=== PATIENT | female | born 1960 | race Caucasian/White ===

== ENCOUNTER 2021-02-13 07:11 | Outpatient (CLI) | payer BC ==
[~2021-02-13 07:11] MED LIST: REGADENOSON 0.4 MG/5 ML SYRINGE ONE
== END 2021-02-13 23:59 | disposition home or self-care (01) ==
LOC: CVU 07:11 → CFH 23:59
PROVIDERS: ATTEND Internal Medicine Cardiovascular Disease
DX: I08.3 Combined rheumatic disorders of mitral, aortic and tricuspid valves (principal); I21.19 ST elevation (STEMI) myocardial infarction involving other coronary artery of inferior wall; I25.5 Ischemic cardiomyopathy; I25.9 Chronic ischemic heart disease, unspecified; I11.0 Hypertensive heart disease with heart failure; I50.9 Heart failure, unspecified; R06.02 Shortness of breath
CPT/HCPCS: 78452; 93017; A9502; C8929; J2785; Q9957

== ENCOUNTER 2021-04-08 08:44 | Inpatient (IN) | payer BC ==
[~2021-04-08] VITALS: Ht 162.6 cm; Wt 89.2 kg
[2021-04-08] MEDS ORDERED: ATOR-2 PO (09:15)
[2021-04-08] MEDS ORDERED: FURO-93 PO (09:15)
[2021-04-08] MEDS ORDERED: SACU1TAB PO (09:15)
[2021-04-08] MEDS ORDERED: ALBU90AE2 INH (09:15)
[2021-04-08] MEDS ORDERED: POTA20TA89 PO (09:15)
[2021-04-08] MEDS ORDERED: CARV6.2512 PO (09:15)
[2021-04-08 09:18] VITALS: BP 105/72
[2021-04-08 09:33] LABS: BASOPHILS % (AUTO) 1 % (0-1); EOSINOPHILS % (AUTO) 3 % (1-7); LYMPHOCYTES % (AUTO) 24 % (22-44); MEAN CORPUSCULAR HEMOGLOBIN 28.4 pg (27.0-34.8); MEAN CORPUSCULAR HGB CONC 33.2 g/dL (32.4-35.8); MEAN PLATELET VOLUME 7.7 fL (7.4-10.4); MONOCYTES % (AUTO) 8 % (2-9); NEUTROPHILS % (AUTO) 64 % (42-75); PLATELET COUNT 275 x10^3/uL (130-400); RED BLOOD COUNT 6.01 x10^6/uL (3.82-5.3); RED CELL DISTRIBUTION WIDTH 14.9 % (9.6-15.2)
[2021-04-08 09:44] LABS: ANION GAP 9 mmol/L (5-15); CALCIUM 9.2 mg/dL (8.5-10.1); CHLORIDE 109 mmol/L (98-107); CREATININE 0.71 mg/dL (0.55-1.02)
[2021-04-08 09:55] LABS: INTERNATIONAL NORMALIZED RATIO 1.03 (0.93-1.1)
[2021-04-08] MEDS ORDERED: LIDOCAINE 2%, 20ML ONE (11:12)
[2021-04-08] MEDS ORDERED: FENTANYL PF 100 MCG/2ML ONE (11:12)
[2021-04-08] MEDS ORDERED: MIDAZOLAM 1 MG/ML, 5ML ONE (11:12)
[2021-04-08] MEDS: OXYcodone/APAP 5/325MG TABLET PO PRN (13:36)
[2021-04-08] MEDS ORDERED: ALBUTEROL SULFATE 2.5 MG/3 ML NEB PRN (14:00)
[2021-04-08] MEDS ORDERED: DIPHENHYDRAMINE 50 MG CAPSULE PO PRN (17:30)
[2021-04-08 18:37] VITALS: BP 145/80
[2021-04-08] MEDS ORDERED: CARVEDILOL 6.25 MG TABLET PO SCH (21:00)
[2021-04-08] MEDS: ATORVASTATIN 80 MG TABLET PO SCH (22:04)
[2021-04-08] MEDS: FUROSEMIDE 20 MG TABLET PO SCH (22:05)
[2021-04-08] MEDS: TEMAZEPAM 30 MG CAPSULE PO PRN (22:06)
[2021-04-08] MEDS: NICOTINE 14MG/24 HR PATCH.TD24 TD SCH (22:06)
[2021-04-08] MEDS: SACUBITRIL/VALSARTAN 24MG-26MG TAB PO SCH (22:10)
[2021-04-09 00:51] VITALS: BP 126/70
[2021-04-09 07:37] VITALS: BP 135/80
[2021-04-09] MEDS ORDERED: PHARMACY INSTRUCTION MC ONE ×2 (09:00)
[2021-04-09 09:03] LABS: BASOPHILS % (AUTO) 1 % (0-1); EOSINOPHILS % (AUTO) 3 % (1-7); LYMPHOCYTES % (AUTO) 20 % (22-44); MEAN CORPUSCULAR HEMOGLOBIN 29.2 pg (27.0-34.8); MEAN CORPUSCULAR HGB CONC 34.3 g/dL (32.4-35.8); MEAN PLATELET VOLUME 7.6 fL (7.4-10.4); MONOCYTES % (AUTO) 9 % (2-9); NEUTROPHILS % (AUTO) 67 % (42-75); PLATELET COUNT 282 x10^3/uL (130-400); RED BLOOD COUNT 5.66 x10^6/uL (3.82-5.3); RED CELL DISTRIBUTION WIDTH 15.1 % (9.6-15.2)
[2021-04-09 09:06] LABS: ALANINE AMINOTRANSFERASE 21 U/L (12-78); ALBUMIN 3.3 g/dL (3.4-5.0); ANION GAP 8 mmol/L (5-15); CALCIUM 8.9 mg/dL (8.5-10.1); CHLORIDE 108 mmol/L (98-107); CREATININE 0.77 mg/dL (0.55-1.02)
[2021-04-09 09:09] LABS: ALKALINE PHOSPHATASE 123 U/L (45-117); BILIRUBIN,TOTAL 0.3 mg/dL (0.2-1.0); TOTAL PROTEIN 7.3 g/dL (6.4-8.2)
[2021-04-09] MEDS: SACUBITRIL/VALSARTAN 24MG-26MG TAB PO SCH ×2 (09:57→21:31)
[2021-04-09] MEDS: FUROSEMIDE 20 MG TABLET PO SCH ×2 (09:57→21:32)
[2021-04-09] MEDS: POTASSIUM CHLORIDE 20 MEQ TAB.ER.PRT PO SCH (09:58)
[2021-04-09] MEDS: CARVEDILOL 6.25 MG TABLET PO SCH ×2 (09:59→21:31)
[2021-04-09 13:05] LABS: MICROSCOPIC NOT IND
[2021-04-09 15:59] VITALS: BP 132/77
[2021-04-09] MEDS: OXYcodone/APAP 5/325MG TABLET PO PRN (17:18)
[2021-04-09] MEDS: MUPIROCIN OINT 2%, 15GM TP SCH (19:08)
[2021-04-09 20:08] VITALS: BP 125/71
[2021-04-09] MEDS: NICOTINE 14MG/24 HR PATCH.TD24 TD SCH (21:30)
[2021-04-09 21:31] VITALS: BP 121/76
[2021-04-09] MEDS: ATORVASTATIN 80 MG TABLET PO SCH (21:31)
[2021-04-09] MEDS ORDERED: CHLORHEXIDINE 15 ML UDC MM ONE (22:00)
[2021-04-10] VITALS (11 sets, daily range): BP systolic 102–131; BP diastolic 58–78
[2021-04-10] MEDS ORDERED: METOPROLOL TARTRATE 25 MG TAB PO ONE (05:00)
[2021-04-10] MEDS ORDERED: INSULIN LISPRO 100 UNITS/ML, PEN SQ-INSULIN ONE (05:00)
[2021-04-10] MEDS ORDERED: ALBUMIN HUMAN 5% 500 ML IV PRN ×2 (07:30→15:30)
[2021-04-10] MEDS ORDERED: POTASSIUM CHLORIDE 80 MEQ, SODIUM BICARBONATE 8.4% 10 MEQ, MAGNESIUM SULFATE 0.5 GM, LI... IV PRN (07:30)
[2021-04-10] MEDS ORDERED: DEXMEDETOMIDINE 200 MCG in SODIUM CHLORIDE 0.9% 48 ML IV PRN (07:30)
[2021-04-10] MEDS ORDERED: MANNITOL PMX 20% 500 ML IVPB PRN (07:30)
[2021-04-10] MEDS ORDERED: REGULAR INSULIN 100 UNITS in SODIUM CHLORIDE 0.9% 99 ML IV PRN ×2 (07:30→15:30)
[2021-04-10] MEDS ORDERED: EPINEPHRINE 5 MG in SODIUM CHLORIDE 0.9% 245 ML IV PRN ×2 (07:30→15:30)
[2021-04-10] MEDS ORDERED: PHENYLEPHRINE 50 MG in SODIUM CHLORIDE 0.9% 245 ML IV PRN ×2 (07:30→15:30)
[2021-04-10] MEDS ORDERED: VANCOMYCIN 1,000 MG in SODIUM CHLORIDE 0.9% 250 ML IVPB ONE (07:30)
[2021-04-10] MEDS ORDERED: CEFUROXIME 1.5 GM in SODIUM CHLORIDE 0.9% 50 ML IVPB ONE (07:30)
[2021-04-10] MEDS: SACUBITRIL/VALSARTAN 24MG-26MG TAB PO SCH ×2 (09:00→20:40)
[2021-04-10] MEDS: POTASSIUM CHLORIDE 20 MEQ TAB.ER.PRT PO SCH (09:00)
[2021-04-10] MEDS: FUROSEMIDE 20 MG TABLET PO SCH (09:00)
[2021-04-10] MEDS ORDERED: PAPAVERINE 30 MG/ML, 2ML ONE (09:47)
[2021-04-10] MEDS ORDERED: HEPARIN 1,000 UNITS/ML, 10ML ONE (09:47)
[2021-04-10] MEDS: MUPIROCIN OINT 2%, 15GM TP SCH (10:55)
[2021-04-10] MEDS ORDERED: FENTANYL PF 250 MCG/5ML ONE ×4 (11:36)
[2021-04-10] MEDS ORDERED: MIDAZOLAM 10MG/2 ML ONE (11:36)
[2021-04-10] MEDS ORDERED: CALCIUM CHLORIDE 10%, 10ML SYR ONE ×2 (11:38→15:27)
[2021-04-10] MEDS ORDERED: PROTAMINE SULFATE 10 MG/ML, 25ML ONE ×2 (13:17)
[2021-04-10] MEDS ORDERED: PROPOFOL 10 MG/ML, 20ML ONE (13:18)
[2021-04-10] MEDS ORDERED: ROCURONIUM 10MG/ML,5ML ONE ×2 (13:19)
[2021-04-10] MEDS ORDERED: AMINOCAPROIC ACID 250 MG/ML, 20ML ONE ×2 (13:19)
[2021-04-10] MEDS ORDERED: AMIODARONE 50 MG/ML, 3ML ONE (14:13)
[2021-04-10] MEDS ORDERED: SODIUM BICARB 8.4%, 50ML SYRINGE ONE (15:17)
[2021-04-10] MEDS ORDERED: ALBUMIN HUMAN 25% 50 ML ONE (15:26)
[2021-04-10] MEDS ORDERED: HEPARIN 1,000 UNITS/ML, 30ML ONE (15:26)
[2021-04-10] MEDS ORDERED: SODIUM BICARBONATE 1 MEQ/ML, 50ML VIAL ONE (15:26)
[2021-04-10] MEDS ORDERED: MAGNESIUM SULFATE PMX 2GM/50ML 50 ML ONE (15:26)
[2021-04-10] MEDS ORDERED: LIDOCAINE 2%, 20ML ONE (15:26)
[2021-04-10] MEDS ORDERED: morphine SULFATE 10 MG/ML, 1ML IVPush PRN (15:30)
[2021-04-10] MEDS ORDERED: DEXTROSE 50%, 50ML SYRINGE IVPush PRN (15:30)
[2021-04-10] MEDS ORDERED: ONDANSETRON 2MG/ML, 2ML IVPush PRN (15:30)
[2021-04-10] MEDS ORDERED: DEXTROSE 4 GM TAB.CHEW PO PRN (15:30)
[2021-04-10] MEDS ORDERED: PROCHLORPERAZINE 5 MG/ML, 2ML IVPush PRN (15:30)
[2021-04-10] MEDS ORDERED: CALCIUM CHLORIDE 13.6 MEQ in SODIUM CHLORIDE 0.9% 100 ML IVPB PRN (15:30)
[2021-04-10] MEDS ORDERED: NITROGLYCERIN/D5W PMX 250 ML IV PRN (15:30)
[2021-04-10] MEDS ORDERED: LACTATED RINGERS 500 ML IV PRN (15:30)
[2021-04-10] MEDS ORDERED: MIDAZOLAM 1 MG/ML, 2ML IV PRN (15:30)
[2021-04-10] MEDS ORDERED: GLUCAGON 1 MG IM PRN (15:30)
[2021-04-10] MEDS ORDERED: INSULIN REGULAR 100 UNITS/ML, 3ML VIAL IVPush PRN (15:30)
[2021-04-10] MEDS ORDERED: PROMETHAZINE 25 MG SUPP PR PRN (15:30)
[2021-04-10] MEDS ORDERED: SODIUM BICARB 8.4%, 50ML SYRINGE IV PRN (15:30)
[2021-04-10] MEDS ORDERED: SODIUM CHLORIDE 0.9% 1,000 ML IV SCH (15:30)
[2021-04-10 15:37] LABS: GLUCOSE BY BLOOD GAS ANALYZER 133 mg/dL (70-110); POTASSIUM BY BLOOD GAS ANALYZR 3.9 mmol/L (3.6-5.5)
[2021-04-10 15:50] LABS: INTERNATIONAL NORMALIZED RATIO 1.32 (0.93-1.1)
[2021-04-10] MEDS: FENTANYL PF 100 MCG/2ML IV PRN ×2 (16:11→18:06)
[2021-04-10] MEDS: INSULIN LISPRO 100 UNITS/ML, PEN SQ-INSULIN SCH ×3 (16:12→23:33)
[2021-04-10] MEDS: KSCALE TO 4.5 IV SCH ×2 (16:12→21:30)
[2021-04-10] MEDS: MAGNESIUM SULFATE 1 GM in SODIUM CHLORIDE 0.9% 100 ML IVPB SCH (16:29)
[2021-04-10] MEDS: DEXMEDETOMIDINE 400 MCG in SODIUM CHLORIDE 0.9% 96 ML IV PRN ×2 (16:29→20:34)
[2021-04-10] MEDS ORDERED: POTASSIUM CHLORIDE PMX 100 ML IV ONE (16:30)
[2021-04-10] MEDS: SENNA/DOCUSATE TABLET PO SCH (20:40)
[2021-04-10] MEDS: ATORVASTATIN 80 MG TABLET PO SCH (20:40)
[2021-04-10] MEDS: DOCUSATE 100 MG CAPSULE PO SCH (20:40)
[2021-04-10] MEDS: SODIUM CHLORIDE FLUSH 10ML SYR IVF SCH (20:42)
[2021-04-10] MEDS ORDERED: DIPHENHYDRAMINE 25 MG CAPSULE PO PRN (21:00)
[2021-04-10] MEDS: OXYcodone IR 5MG TABLET PO PRN (23:21)
[2021-04-10] MEDS: ACETAMINOPHEN 500 MG TABLET PO SCH (23:21)
[2021-04-11] MEDS: CEFUROXIME 1.5 GM in SODIUM CHLORIDE 0.9% 50 ML IVPB SCH ×2 (00:24→11:41)
[2021-04-11] MEDS ORDERED: EPINEPHRINE 1 MG/ML, 1ML ONE (00:39)
[2021-04-11] MEDS: FENTANYL PF 100 MCG/2ML IV PRN (00:53)
[2021-04-11] MEDS: OXYcodone IR 5MG TABLET PO PRN ×7 (02:14→20:48)
[2021-04-11] MEDS: INSULIN LISPRO 100 UNITS/ML, PEN SQ-INSULIN SCH ×5 (03:40→19:30)
[2021-04-11 04:02] LABS: BASOPHILS % (AUTO) 0 % (0-1); EOSINOPHILS % (AUTO) 0 % (1-7); LYMPHOCYTES % (AUTO) 9 % (22-44); MEAN CORPUSCULAR HGB CONC 33.5 g/dL (32.4-35.8); MEAN PLATELET VOLUME 7.5 fL (7.4-10.4); MONOCYTES % (AUTO) 8 % (2-9); NEUTROPHILS % (AUTO) 82 % (42-75); PLATELET COUNT 285 x10^3/uL (130-400); RED BLOOD COUNT 3.25 x10^6/uL (3.82-5.3)
[2021-04-11 04:07] LABS: ANION GAP 12 mmol/L (5-15); CALCIUM 8.2 mg/dL (8.5-10.1); CHLORIDE 112 mmol/L (98-107); CREATININE 0.89 mg/dL (0.55-1.02)
[2021-04-11] MEDS: KSCALE TO 4.5 IV SCH ×2 (04:25→09:30)
[2021-04-11] MEDS: ACETAMINOPHEN 500 MG TABLET PO SCH ×4 (05:43→23:11)
[2021-04-11] MEDS: MUPIROCIN OINT 2%, 15GM NAS SCH ×2 (06:19→17:10)
[2021-04-11] MEDS: OMEPRAZOLE 20 MG CAPSULE.DR PO SCH (08:58)
[2021-04-11] MEDS: ASPIRIN 81 MG TABLET EC PO SCH (08:59)
[2021-04-11] MEDS: SENNA/DOCUSATE TABLET PO SCH ×2 (09:00→20:47)
[2021-04-11] MEDS: POLYETHYLENE GLYCOL 17 GM PACKET PO SCH (09:00)
[2021-04-11] MEDS: DOCUSATE 100 MG CAPSULE PO SCH ×2 (09:00→20:47)
[2021-04-11] MEDS: SACUBITRIL/VALSARTAN 24MG-26MG TAB PO SCH ×2 (09:00→20:47)
[2021-04-11] MEDS: SODIUM CHLORIDE FLUSH 10ML SYR IVF SCH ×2 (09:00→20:49)
[2021-04-11] MEDS: CHLORHEXIDINE 15 ML UDC MM SCH ×2 (09:00→20:46)
[2021-04-11] MEDS ORDERED: FUROSEMIDE 20 MG/2 ML ONE (11:01)
[2021-04-11] MEDS: CLOPIDOGREL 75 MG TABLET PO SCH (11:04)
[2021-04-11] MEDS: BUSPIRONE 5 MG TABLET PO SCH ×3 (11:04→20:48)
[2021-04-11] MEDS: FUROSEMIDE 20 MG/2 ML IV SCH ×2 (11:08→17:09)
[2021-04-11] MEDS ORDERED: POTASSIUM CHLORIDE PMX 100 ML IVPB ONE (11:30)
[2021-04-11] MEDS: MAGNESIUM SULFATE 1 GM in SODIUM CHLORIDE 0.9% 100 ML IVPB SCH (16:15)
[2021-04-11] MEDS: POTASSIUM CHLORIDE 10 MEQ TABLET.ER PO SCH (17:09)
[2021-04-11] MEDS ORDERED: TEMAZEPAM 15 MG CAPSULE ONE (20:35)
[2021-04-11] MEDS: TEMAZEPAM 30 MG CAPSULE PO PRN (20:46)
[2021-04-11] MEDS: ATORVASTATIN 80 MG TABLET PO SCH (20:47)
[2021-04-12] MEDS: OXYcodone IR 5MG TABLET PO PRN ×5 (02:51→20:28)
[2021-04-12 03:18] LABS: BASOPHILS % (AUTO) 1 % (0-1); EOSINOPHILS % (AUTO) 1 % (1-7); LYMPHOCYTES % (AUTO) 11 % (22-44); MEAN CORPUSCULAR HEMOGLOBIN 28.4 pg (27.0-34.8); MEAN CORPUSCULAR HGB CONC 33.2 g/dL (32.4-35.8); MEAN PLATELET VOLUME 7.4 fL (7.4-10.4); MONOCYTES % (AUTO) 10 % (2-9); NEUTROPHILS % (AUTO) 77 % (42-75); PLATELET COUNT 231 x10^3/uL (130-400); RED BLOOD COUNT 3.38 x10^6/uL (3.82-5.3); RED CELL DISTRIBUTION WIDTH 15.3 % (9.6-15.2)
[2021-04-12 03:28] LABS: ANION GAP 6 mmol/L (5-15); CALCIUM 8.1 mg/dL (8.5-10.1); CHLORIDE 109 mmol/L (98-107); CREATININE 0.52 mg/dL (0.55-1.02)
[2021-04-12] MEDS: MUPIROCIN OINT 2%, 15GM NAS SCH ×2 (05:11→17:01)
[2021-04-12] MEDS: ACETAMINOPHEN 500 MG TABLET PO SCH ×4 (05:11→22:18)
[2021-04-12] MEDS: INSULIN LISPRO 100 UNITS/ML, PEN SQ-INSULIN SCH ×4 (08:25→22:18)
[2021-04-12] MEDS: POTASSIUM CHLORIDE 10 MEQ TABLET.ER PO SCH ×2 (08:32→17:00)
[2021-04-12] MEDS: SODIUM CHLORIDE FLUSH 10ML SYR IVF SCH ×2 (08:33→20:29)
[2021-04-12] MEDS: CHLORHEXIDINE 15 ML UDC MM SCH ×2 (08:33→20:27)
[2021-04-12] MEDS: FUROSEMIDE 40 MG/4 ML IV SCH ×2 (08:34→08:55)
[2021-04-12] MEDS: BUSPIRONE 5 MG TABLET PO SCH ×3 (08:44→20:27)
[2021-04-12] MEDS: ENOXAPARIN 40 MG/0.4 ML SQ SCH (08:45)
[2021-04-12] MEDS: SENNA/DOCUSATE TABLET PO SCH ×2 (08:45→20:30)
[2021-04-12] MEDS: CARVEDILOL 3.125 MG TABLET PO SCH ×2 (08:45→20:28)
[2021-04-12] MEDS: CLOPIDOGREL 75 MG TABLET PO SCH (08:45)
[2021-04-12] MEDS: DOCUSATE 100 MG CAPSULE PO SCH ×2 (08:45→20:28)
[2021-04-12] MEDS: SACUBITRIL/VALSARTAN 24MG-26MG TAB PO SCH ×2 (08:45→20:28)
[2021-04-12] MEDS: ASPIRIN 81 MG TABLET EC PO SCH (08:45)
[2021-04-12] MEDS: POLYETHYLENE GLYCOL 17 GM PACKET PO SCH (08:46)
[2021-04-12] MEDS: OMEPRAZOLE 20 MG CAPSULE.DR PO SCH (08:47)
[2021-04-12 14:56] VITALS: BP 122/75
[2021-04-12] MEDS ORDERED: BISACODYL 10 MG SUPP PR PRN (15:30)
[2021-04-12] MEDS ORDERED: MUPIROCIN OINT 2%, 22GM ONE (16:43)
[2021-04-12] MEDS: MAGNESIUM SULFATE 1 GM in SODIUM CHLORIDE 0.9% 100 ML IVPB SCH (16:56)
[2021-04-12 18:36] VITALS: BP 108/74
[2021-04-12] MEDS ORDERED: TEMAZEPAM 15 MG CAPSULE ONE (20:08)
[2021-04-12] MEDS: ATORVASTATIN 80 MG TABLET PO SCH (20:28)
[2021-04-12] MEDS: TEMAZEPAM 30 MG CAPSULE PO PRN (20:30)
[2021-04-13 02:12] VITALS: BP 109/69
[2021-04-13] MEDS: ACETAMINOPHEN 500 MG TABLET PO SCH ×4 (05:32→22:04)
[2021-04-13] MEDS: MUPIROCIN OINT 2%, 15GM NAS SCH ×2 (05:32→16:24)
[2021-04-13] MEDS: OXYcodone IR 5MG TABLET PO PRN ×5 (05:32→22:05)
[2021-04-13 05:58] LABS: BASOPHILS % (AUTO) 1 % (0-1); EOSINOPHILS % (AUTO) 1 % (1-7); LYMPHOCYTES % (AUTO) 9 % (22-44); MEAN CORPUSCULAR HEMOGLOBIN 29.2 pg (27.0-34.8); MEAN CORPUSCULAR HGB CONC 33.7 g/dL (32.4-35.8); MEAN PLATELET VOLUME 7.4 fL (7.4-10.4); MONOCYTES % (AUTO) 8 % (2-9); NEUTROPHILS % (AUTO) 82 % (42-75); PLATELET COUNT 239 x10^3/uL (130-400); RED BLOOD COUNT 3.17 x10^6/uL (3.82-5.3); RED CELL DISTRIBUTION WIDTH 15.2 % (9.6-15.2)
[2021-04-13 06:03] LABS: ANION GAP 3 mmol/L (5-15); CALCIUM 8.5 mg/dL (8.5-10.1); CHLORIDE 107 mmol/L (98-107); CREATININE 0.46 mg/dL (0.55-1.02)
[2021-04-13 06:58] VITALS: BP 100/68
[2021-04-13] MEDS: OMEPRAZOLE 20 MG CAPSULE.DR PO SCH (07:55)
[2021-04-13] MEDS: SENNA/DOCUSATE TABLET PO SCH ×2 (07:58→21:00)
[2021-04-13] MEDS: SACUBITRIL/VALSARTAN 24MG-26MG TAB PO SCH ×2 (07:58→21:00)
[2021-04-13] MEDS: DOCUSATE 100 MG CAPSULE PO SCH ×2 (07:58→21:00)
[2021-04-13] MEDS: BUSPIRONE 5 MG TABLET PO SCH ×3 (07:58→21:00)
[2021-04-13] MEDS: POTASSIUM CHLORIDE 10 MEQ TABLET.ER PO SCH ×2 (07:59→16:24)
[2021-04-13] MEDS: CLOPIDOGREL 75 MG TABLET PO SCH (07:59)
[2021-04-13] MEDS: ASPIRIN 81 MG TABLET EC PO SCH (07:59)
[2021-04-13] MEDS: FUROSEMIDE 40 MG/4 ML IV SCH (07:59)
[2021-04-13] MEDS: SODIUM CHLORIDE FLUSH 10ML SYR IVF SCH ×2 (07:59→21:00)
[2021-04-13] MEDS: CARVEDILOL 3.125 MG TABLET PO SCH ×2 (07:59→21:00)
[2021-04-13] MEDS: POLYETHYLENE GLYCOL 17 GM PACKET PO SCH (08:47)
[2021-04-13] MEDS: ENOXAPARIN 40 MG/0.4 ML SQ SCH (08:47)
[2021-04-13] MEDS: INSULIN LISPRO 100 UNITS/ML, PEN SQ-INSULIN SCH ×4 (08:47→20:57)
[2021-04-13] MEDS ORDERED: GABAPENTIN 100 MG CAPSULE PO SCH (10:30)
[2021-04-13 12:33] VITALS: BP 117/81
[2021-04-13] MEDS: GABAPENTIN 100 MG CAPSULE PO SCH ×2 (13:42→20:59)
[2021-04-13 19:02] VITALS: BP 122/81
[2021-04-13] MEDS ORDERED: TEMAZEPAM 15 MG CAPSULE ONE (20:47)
[2021-04-13] MEDS: TEMAZEPAM 30 MG CAPSULE PO PRN (20:58)
[2021-04-13] MEDS: ATORVASTATIN 80 MG TABLET PO SCH (21:00)
[2021-04-14 02:40] VITALS: BP 133/80
[2021-04-14 03:50] LABS: BASOPHILS % (AUTO) 0 % (0-1); EOSINOPHILS % (AUTO) 3 % (1-7); LYMPHOCYTES % (AUTO) 18 % (22-44); MEAN CORPUSCULAR HGB CONC 33.5 g/dL (32.4-35.8); MEAN PLATELET VOLUME 7.5 fL (7.4-10.4); MONOCYTES % (AUTO) 6 % (2-9); NEUTROPHILS % (AUTO) 73 % (42-75); PLATELET COUNT 321 x10^3/uL (130-400); RED CELL DISTRIBUTION WIDTH 15.3 % (9.6-15.2)
[2021-04-14 03:58] LABS: ANION GAP 8 mmol/L (5-15); CALCIUM 8.3 mg/dL (8.5-10.1); CHLORIDE 104 mmol/L (98-107); CREATININE 0.59 mg/dL (0.55-1.02)
[2021-04-14] MEDS: ACETAMINOPHEN 500 MG TABLET PO SCH ×4 (05:53→21:26)
[2021-04-14] MEDS: GABAPENTIN 100 MG CAPSULE PO SCH ×3 (05:53→21:35)
[2021-04-14] MEDS: OMEPRAZOLE 20 MG CAPSULE.DR PO SCH (05:54)
[2021-04-14] MEDS: MUPIROCIN OINT 2%, 15GM NAS SCH ×2 (06:00→17:11)
[2021-04-14] MEDS: INSULIN LISPRO 100 UNITS/ML, PEN SQ-INSULIN SCH ×4 (07:00→21:00)
[2021-04-14 07:45] VITALS: BP 122/81
[2021-04-14] MEDS: BUSPIRONE 5 MG TABLET PO SCH ×3 (08:39→21:25)
[2021-04-14] MEDS: ENOXAPARIN 40 MG/0.4 ML SQ SCH (08:39)
[2021-04-14] MEDS: SENNA/DOCUSATE TABLET PO SCH ×2 (08:39→21:25)
[2021-04-14] MEDS: SACUBITRIL/VALSARTAN 24MG-26MG TAB PO SCH ×2 (08:39→21:25)
[2021-04-14] MEDS: ASPIRIN 81 MG TABLET EC PO SCH (08:39)
[2021-04-14] MEDS: CLOPIDOGREL 75 MG TABLET PO SCH (08:39)
[2021-04-14] MEDS: POTASSIUM CHLORIDE 10 MEQ TABLET.ER PO SCH ×2 (08:40→17:11)
[2021-04-14] MEDS: OXYcodone IR 5MG TABLET PO PRN ×4 (08:40→21:23)
[2021-04-14] MEDS: FUROSEMIDE 40 MG/4 ML IV SCH (08:40)
[2021-04-14] MEDS: CARVEDILOL 3.125 MG TABLET PO SCH ×2 (08:40→21:26)
[2021-04-14] MEDS: SODIUM CHLORIDE FLUSH 10ML SYR IVF SCH ×2 (08:41→21:00)
[2021-04-14] MEDS: POLYETHYLENE GLYCOL 17 GM PACKET PO SCH (09:00)
[2021-04-14] MEDS: DOCUSATE 100 MG CAPSULE PO SCH ×2 (09:00→21:26)
[2021-04-14 14:28] VITALS: BP 105/69
[2021-04-14 18:47] VITALS: BP 132/74
[2021-04-14] MEDS ORDERED: TEMAZEPAM 15 MG CAPSULE ONE (21:10)
[2021-04-14] MEDS: TEMAZEPAM 30 MG CAPSULE PO PRN (21:24)
[2021-04-14] MEDS: ATORVASTATIN 80 MG TABLET PO SCH (21:25)
[2021-04-15 00:10] VITALS: BP 122/77
[2021-04-15 04:04] LABS: ANION GAP 4 mmol/L (5-15); CALCIUM 8.2 mg/dL (8.5-10.1); CHLORIDE 104 mmol/L (98-107); CREATININE 0.44 mg/dL (0.55-1.02)
[2021-04-15] MEDS: OXYcodone IR 5MG TABLET PO PRN ×5 (04:26→20:29)
[2021-04-15] MEDS: ACETAMINOPHEN 500 MG TABLET PO SCH ×3 (04:26→17:00)
[2021-04-15 05:04] LABS: BASOPHILS % (AUTO) 1 % (0-1); EOSINOPHILS % (AUTO) 4 % (1-7); LYMPHOCYTES % (AUTO) 22 % (22-44); MEAN CORPUSCULAR HEMOGLOBIN 29.1 pg (27.0-34.8); MEAN CORPUSCULAR HGB CONC 34.3 g/dL (32.4-35.8); MEAN PLATELET VOLUME 6.9 fL (7.4-10.4); MONOCYTES % (AUTO) 11 % (2-9); NEUTROPHILS % (AUTO) 63 % (42-75); PLATELET COUNT 395 x10^3/uL (130-400); RED BLOOD COUNT 3.16 x10^6/uL (3.82-5.3); RED CELL DISTRIBUTION WIDTH 14.9 % (9.6-15.2)
[2021-04-15] MEDS: OMEPRAZOLE 20 MG CAPSULE.DR PO SCH (05:31)
[2021-04-15] MEDS: MUPIROCIN OINT 2%, 15GM NAS SCH ×2 (05:31→17:18)
[2021-04-15] MEDS: GABAPENTIN 100 MG CAPSULE PO SCH ×3 (05:31→20:28)
[2021-04-15 06:35] VITALS: BP 109/74
[2021-04-15] MEDS: INSULIN LISPRO 100 UNITS/ML, PEN SQ-INSULIN SCH (07:00)
[2021-04-15] MEDS: ASPIRIN 81 MG TABLET EC PO SCH (08:53)
[2021-04-15] MEDS: CLOPIDOGREL 75 MG TABLET PO SCH (08:53)
[2021-04-15] MEDS: SACUBITRIL/VALSARTAN 24MG-26MG TAB PO SCH ×2 (08:53→21:55)
[2021-04-15] MEDS: FUROSEMIDE 40 MG/4 ML IV SCH (08:53)
[2021-04-15] MEDS: BUSPIRONE 5 MG TABLET PO SCH ×3 (08:54→20:28)
[2021-04-15] MEDS: POTASSIUM CHLORIDE 10 MEQ TABLET.ER PO SCH ×2 (08:54→17:16)
[2021-04-15] MEDS: CARVEDILOL 3.125 MG TABLET PO SCH ×2 (08:54→20:28)
[2021-04-15] MEDS: ENOXAPARIN 40 MG/0.4 ML SQ SCH (09:00)
[2021-04-15] MEDS: SENNA/DOCUSATE TABLET PO SCH ×2 (09:00→20:29)
[2021-04-15] MEDS: POLYETHYLENE GLYCOL 17 GM PACKET PO SCH (09:00)
[2021-04-15] MEDS: SODIUM CHLORIDE FLUSH 10ML SYR IVF SCH ×2 (09:00→21:00)
[2021-04-15] MEDS: DOCUSATE 100 MG CAPSULE PO SCH ×2 (09:00→21:54)
[2021-04-15 14:35] VITALS: BP 103/70
[2021-04-15 19:46] VITALS: BP 120/76
[2021-04-15] MEDS: ATORVASTATIN 80 MG TABLET PO SCH (20:28)
[2021-04-15] MEDS: TEMAZEPAM 30 MG CAPSULE PO PRN (20:29)
[2021-04-15] MEDS ORDERED: NICOTINE 21 MG/24 HR PATCH.TD24 TD ONE (21:30)
[2021-04-16] MEDS: OXYcodone IR 5MG TABLET PO PRN ×3 (02:06→12:23)
[2021-04-16 02:07] VITALS: BP 95/66
[2021-04-16] MEDS: GABAPENTIN 100 MG CAPSULE PO SCH (05:17)
[2021-04-16 05:24] LABS: BASOPHILS % (AUTO) 1 % (0-1); EOSINOPHILS % (AUTO) 4 % (1-7); LYMPHOCYTES % (AUTO) 19 % (22-44); MEAN CORPUSCULAR HEMOGLOBIN 28.6 pg (27.0-34.8); MEAN CORPUSCULAR HGB CONC 33.3 g/dL (32.4-35.8); MEAN PLATELET VOLUME 6.5 fL (7.4-10.4); MONOCYTES % (AUTO) 10 % (2-9); NEUTROPHILS % (AUTO) 67 % (42-75); PLATELET COUNT 478 x10^3/uL (130-400)
[2021-04-16 05:36] LABS: ANION GAP 5 mmol/L (5-15); CALCIUM 8.7 mg/dL (8.5-10.1); CHLORIDE 102 mmol/L (98-107); CREATININE 0.46 mg/dL (0.55-1.02)
[2021-04-16 06:43] VITALS: BP 112/72
[2021-04-16] MEDS: POTASSIUM CHLORIDE 10 MEQ TABLET.ER PO SCH (08:25)
[2021-04-16] MEDS: SACUBITRIL/VALSARTAN 24MG-26MG TAB PO SCH (08:25)
[2021-04-16] MEDS: CARVEDILOL 3.125 MG TABLET PO SCH (08:25)
[2021-04-16] MEDS: FUROSEMIDE 40 MG/4 ML IV SCH (08:25)
[2021-04-16] MEDS: OMEPRAZOLE 20 MG CAPSULE.DR PO SCH (08:25)
[2021-04-16] MEDS: CLOPIDOGREL 75 MG TABLET PO SCH (08:25)
[2021-04-16] MEDS: ENOXAPARIN 40 MG/0.4 ML SQ SCH (08:25)
[2021-04-16] MEDS: ASPIRIN 81 MG TABLET EC PO SCH (08:25)
[2021-04-16] MEDS: BUSPIRONE 5 MG TABLET PO SCH (08:25)
[2021-04-16] MEDS: SODIUM CHLORIDE FLUSH 10ML SYR IVF SCH (08:34)
[2021-04-16] MEDS: DOCUSATE 100 MG CAPSULE PO SCH (08:35)
[2021-04-16] MEDS: SENNA/DOCUSATE TABLET PO SCH (08:35)
[2021-04-16] MEDS: POLYETHYLENE GLYCOL 17 GM PACKET PO SCH (08:35)
[2021-04-16] MEDS ORDERED: OXYC5TAB98 PO (08:57)
[2021-04-16] MEDS ORDERED: GABA-826 PO (08:57)
[2021-04-16] MEDS ORDERED: ASPI81TA45 PO (08:57)
[2021-04-16] MEDS ORDERED: CARV3.1212 PO (08:57)
[2021-04-16] MEDS ORDERED: BUSP5TAB2 PO (08:57)
[2021-04-16] MEDS ORDERED: CLOP75TA PO (08:57)
[2021-04-16] MEDS ORDERED: LIDOCAINE 1%, 10ML ONE (09:47)
[2021-04-16] MEDS ORDERED: SPIR25TA PO (12:08)
== END 2021-04-16 13:50 | disposition home health service (06) | DRG 234 ==
LOC: CACL 08:44 → LDIP 13:36 → 5SO 14:11 → CCU 04-10 10:54 → 5SO 04-12 14:58 → DCLOUNGE 04-16 13:25
PROVIDERS: ADMIT Internal Medicine Cardiovascular Disease; ATTEND Internal Medicine Cardiovascular Disease
PROC: 4A023N8 Measurement of Cardiac Sampling and Pressure, Bilateral, Percutaneous Approach (ICD-10-PCS; principal; 2021-04-08)
PROC: B2111ZZ Fluoroscopy of Multiple Coronary Arteries using Low Osmolar Contrast (ICD-10-PCS; 2021-04-08)
PROC: B2151ZZ Fluoroscopy of Left Heart using Low Osmolar Contrast (ICD-10-PCS; 2021-04-08)
PROC: 02100Z9 Bypass Coronary Artery, One Artery from Left Internal Mammary, Open Approach (ICD-10-PCS; 2021-04-10)
PROC: 021109W Bypass Coronary Artery, Two Arteries from Aorta with Autologous Venous Tissue, Open Approach (ICD-10-PCS; 2021-04-10)
PROC: 06BQ4ZZ Excision of Left Saphenous Vein, Percutaneous Endoscopic Approach (ICD-10-PCS; 2021-04-10)
PROC: 5A1221Z Performance of Cardiac Output, Continuous (ICD-10-PCS; 2021-04-10)
PROC: 30233M1 Transfusion of Nonautologous Plasma Cryoprecipitate into Peripheral Vein, Percutaneous Approach (ICD-10-PCS; 2021-04-10)
PROC: 30233R1 Transfusion of Nonautologous Platelets into Peripheral Vein, Percutaneous Approach (ICD-10-PCS; 2021-04-10)
PROC: 0W9B3ZZ Drainage of Left Pleural Cavity, Percutaneous Approach (ICD-10-PCS; 2021-04-16)
PROC: BB4BZZZ Ultrasonography of Pleura (ICD-10-PCS; 2021-04-16)
DX: I25.10 Atherosclerotic heart disease of native coronary artery without angina pectoris (principal); F17.203 Nicotine dependence unspecified, with withdrawal; D64.9 Anemia, unspecified; E78.5 Hyperlipidemia, unspecified; F41.9 Anxiety disorder, unspecified; I10 Essential (primary) hypertension; J44.9 Chronic obstructive pulmonary disease, unspecified; Z20.822 Contact with and (suspected) exposure to COVID-19
CPT/HCPCS: 32555; 36415; 36600; 93458; J3490; J7613; S0017; 71045; 71046; 80048; 80053; 81003; 82247; 82330; 82800; 82803; 82810; 82947; 82962; 83036; 83735; 84132; 84295; 85014; 85018; 85025; 85049; 85347; 85610; 85730; 86078; 86850; 86900; 86923; 87040; 87081; 87205; 87635; 93005; 93312; 93321; 93325; 93880; 93970; 94002; 94150; 94640; 99156; 99157; C1769; C1894; G0378; J0697; J1644; J1650; J1940; J2250; J2704; J2720; J3010; J3475; J3480; J7120; P9047; C1751; C1760; C1781; J0171; J0282; J1815; J2440; J7050; P9017; P9035; Q9967

== ENCOUNTER → 2021-07-23 | Outpatient (CLI) | payer BC ==
[~2021-07-23] MED LIST changes: +ALBU90AE2 INH; +ASPI81TA45 PO; +ATOR-2 PO; +BUSP5TAB2 PO; +CARV3.1212 PO; +CARV6.2512 PO; +CLOP75TA PO; +FURO-93 PO; +GABA-826 PO; +OXYC5TAB98 PO; +POTA20TA89 PO; -REGADENOSON 0.4 MG/5 ML SYRINGE ONE; +SACU1TAB PO; +SPIR25TA PO
== END | disposition home or self-care (01) ==
LOC: CVU 07:35
PROVIDERS: ATTEND Internal Medicine Cardiovascular Disease
DX: I08.8 Other rheumatic multiple valve diseases (principal); I11.9 Hypertensive heart disease without heart failure; I42.9 Cardiomyopathy, unspecified
CPT/HCPCS: 93306